=== PATIENT | female | born 1940 | race Caucasian/White ===

== ENCOUNTER 2022-11-15 07:02 | Inpatient (IN) | payer OTHER ==
[~2022-11-15] VITALS: Ht 154.9 cm; Wt 77.1 kg
[2022-11-15 07:16] VITALS: BP 134/71
--- NOTE | 2022-11-15 07:22 | NUR ---
PT W/C ASSISTED TO BED 9.
--- NOTE | 2022-11-15 07:25 | NUR ---
Patient resting in bed, A/Ox4, chest rise and fall symmetrical, no s/s of distress, patient on monitor.
--- NOTE | 2022-11-15 07:28 | NUR ---
Change of shift report given to AM shift nurse Mateus HUNTER. AM shift nurse Mateus RN verbalized understanding of report, no further questions.
--- NOTE | 2022-11-15 07:40 | NUR ---
PT TO X RAYS
[2022-11-15 09:15] LABS: BASOPHILS # (AUTO) 0.1 K/uL (0.00-0.22); BASOPHILS % (AUTO) 0.8 % (0.0-2.0); EOSINOPHILS # (AUTO) 0.5 K/uL (0-0.4); EOSINOPHILS % (AUTO) 4.7 % (0.0-4.0); HEMATOCRIT 37.4 % (36-48); HEMOGLOBIN 12.3 g/dL (12.0-16.0); LYMPHOCYTES # (AUTO) 1.1 K/uL (2.5-16.5); LYMPHOCYTES % (AUTO) 10.4 % (20.5-51.1); MEAN CORPUSCULAR HEMOGLOBIN 27 pg (27-31); MEAN CORPUSCULAR HGB CONC 33 g/dL (33-37); MEAN CORPUSCULAR VOLUME 80.1 fL (80-94); MONOCYTES # (AUTO) 0.8 K/uL (0.8-1.0); MONOCYTES % (AUTO) 7.1 % (1.7-9.3); NEUTROPHILS # (AUTO) 8.3 K/uL (1.8-7.7); PLATELET COUNT (AUTO) 310 K/uL (140-450); RED BLOOD CELL COUNT(AUTO) 4.66 MIL/uL (4.20-5.40); RED CELL DISTRIBUTION WIDTH 26.8 % (11.6-13.7); WHITE BLOOD COUNT (AUTO) 10.8 K/uL (4.8-10.8)
[2022-11-15 09:25] LABS: ALBUMIN 3.6 g/dL (3.4-5.0); ANION GAP 15.6 (8-16); ASPARTATE AMINOTRANSFERASE 27 U/L (15-37); CARBON DIOXIDE 25.4 mmol/L (21-32); CHLORIDE 97 mmol/L (98-107); CREATININE 1.3 mg/dL (0.6-1.3); GLUCOSE 119 mg/dL (74-106); SODIUM SERUM 135 mmol/L (136-145); TOTAL BILIRUBIN 0.6 mg/dL (0.0-1.0); UREA NITROGEN, BLOOD 19 mg/dL (7-18)
[2022-11-15] MEDS ORDERED: MORPHINE SULFATE 4 MG/ML SYR IM ONE (09:45)
[2022-11-15] MEDS ORDERED: CALCIUM CHLORIDE 10% 100 MG/ML SYR IVP ONE (09:45)
[2022-11-15] MEDS ORDERED: NACL 0.9% 1,000 ML IV ONE (09:45)
[2022-11-15] MEDS ORDERED: POTASSIUM CHLORIDE 10 MEQ TABER PO ONE (09:45)
--- NOTE | 2022-11-15 10:11 | NUR ---
HAD U/S DONE, X R DONE, MEDICATED FOR RIGHT ARM PAIN 04/09, SR ON CM O2 SAT 98% RA , SR UP TIMES 2
[2022-11-15] MEDS ORDERED: PANT40EC PO (10:22)
[2022-11-15] MEDS ORDERED: FURO40TA9 PO (10:22)
[2022-11-15] MEDS ORDERED: CARV12.5 PO (10:23)
[2022-11-15] MEDS ORDERED: NIFE30TE5 PO (10:24)
[2022-11-15] MEDS ORDERED: MELA10TA21 PO (10:25)
[2022-11-15] MEDS ORDERED: LORazepam 2 MG/ML VIAL IVP PRN (10:45)
[2022-11-15] MEDS ORDERED: MORPHINE SULFATE 2 MG/ML SYR IVP PRN (10:45)
[2022-11-15] MEDS ORDERED: POTASSIUM CHLORIDE 10 MEQ TABER PO PRN (10:45)
[2022-11-15] MEDS ORDERED: ACETAMINOPHEN 325 MG TAB PO PRN (10:45)
[2022-11-15] MEDS ORDERED: ONDANSETRON 4 MG/2 ML VIAL IVP PRN (10:45)
[2022-11-15] MEDS ORDERED: MAG SULF 2000 MG/WATER PREMIX 50 ML IV PRN (10:45)
[2022-11-15] MEDS ORDERED: DOCUSATE SODIUM 100 MG GELCAP PO PRN (10:45)
[2022-11-15 11:17] LABS: MAGNESIUM 1.8 mg/dL (1.8-2.4); PHOSPHORUS 1.7 mg/dL (2.5-4.9)
--- NOTE | 2022-11-15 12:44 | NUR ---
sitting in a chair, no ac distress, sr w pvcs on cm, sl patent LH, sr up times 2
--- NOTE | 2022-11-15 16:19 | NUR ---
MEDICATED FOR RIGHT HAND AND ARM PAIN 03/09, WRIST BRACE IN PLACE, N/C INTACT, SR ON CM SR UP TIMES 2
--- NOTE | 2022-11-15 19:00 | NUR ---
food tray given
--- NOTE | 2022-11-15 19:30 | NUR ---
Patient received on room 9 sitting on the chair comfortably and awake. Alert and oriented x4. No acute distress. No complaints of pain or discomfort. Respirations even and unlabored.
--- NOTE | 2022-11-15 21:20 | NUR ---
Patient will be admitted to care of Dr. Fountain. Admited to Telemetry. Will go to room 121 A. Belongings list completed. Report to DALE Dewey.
[2022-11-15] MEDS: carvediloL 12.5 MG TAB PO SCH (21:37)
[2022-11-15 21:43] VITALS: BP 159/89
[2022-11-16 04:33] VITALS: BP 121/53
[2022-11-16] MEDS: NIFEdipine 30 MG TABER PO SCH (05:33)
--- NOTE | 2022-11-16 05:46 | NUR ---
rn notes patient remains on room air, no sob noted, patient denies pain at this time. VSS all shift. BP under control with medications. Patient able to ambulate to restroom by herself with minimal help.
[2022-11-16 06:40] LABS: ANION GAP 13.4 (8-16); CARBON DIOXIDE 26.1 mmol/L (21-32); CHLORIDE 101 mmol/L (98-107); GLUCOSE 106 mg/dL (74-106); POTASSIUM 3.5 mmol/L (3.5-5.1); SODIUM SERUM 137 mmol/L (136-145); UREA NITROGEN, BLOOD 17 mg/dL (7-18)
[2022-11-16 06:55] LABS: BASOPHILS # (AUTO) 0.1 K/uL (0.00-0.22); BASOPHILS % (AUTO) 0.9 % (0.0-2.0); EOSINOPHILS # (AUTO) 0.3 K/uL (0-0.4); HEMATOCRIT 34.4 % (36-48); HEMOGLOBIN 11.4 g/dL (12.0-16.0); LYMPHOCYTES # (AUTO) 1.1 K/uL (2.5-16.5); LYMPHOCYTES % (AUTO) 13.3 % (20.5-51.1); MEAN CORPUSCULAR HEMOGLOBIN 26 pg (27-31); MEAN CORPUSCULAR HGB CONC 33 g/dL (33-37); MEAN CORPUSCULAR VOLUME 79.3 fL (80-94); MONOCYTES # (AUTO) 0.9 K/uL (0.8-1.0); MONOCYTES % (AUTO) 10.3 % (1.7-9.3); NEUTROPHILS % (AUTO) 72.5 % (42.2-75.2); PLATELET COUNT (AUTO) 283 K/uL (140-450); RED BLOOD CELL COUNT(AUTO) 4.34 MIL/uL (4.20-5.40); RED CELL DISTRIBUTION WIDTH 26.2 % (11.6-13.7); WHITE BLOOD COUNT (AUTO) 8.3 K/uL (4.8-10.8)
--- NOTE | 2022-11-16 07:10 | NUR ---
RECEIVED REPORT FROM NIGHTSHIFT NURSE. PT IS ASLEEP, WOKE UP TO NAME AND TOUCH, PT IS [place] SPEAKING, AOX4, ON ROOM AIR, AMBULATORY WITH ASSISTANCE. PT SHOWS NO SIGNS OF DISTRESS, WILL CONTINUE WITH CARE. BED IN LOWEST POSITION, 2 SIDE RAILS UP, CALL LIGHT PLACED WITHIN REACH.
[2022-11-16 08:00] VITALS: BP 144/63
[2022-11-16] MEDS: carvediloL 12.5 MG TAB PO SCH ×2 (09:15→20:27)
--- NOTE | 2022-11-16 09:59 | NUR ---
PATIENT HAS BEEN SCREENED AND CATEGORIZED MODERATE NUTRITION RISK. PATIENT WILL BE SEEN WITHIN 3-5 DAYS OF ADMISSION. 11/15/22-11/20/[address]
--- NOTE | 2022-11-16 10:45 | NUR ---
PT REPORTS HAVING HEADACHE 6/10 PAIN. NON-PHARM INTERVENTIONS INEFFECTIVE (RAISED HOB, REPOSITION, DISTRACTION, RELAXATION TECHNIQUES). PRN MEDICATION FOR SÁNCHEZ ADMINISTERED, PT TOLERATED GREEN END DEPARTMENT SUPERVISOR WELL. WILL CONTINUE TO MONITOR AND WILL CONTINUE WITH CARE. PT IS SITTING IN CHAIR AT BEDSIDE, STATES IT IS MORE COMFORTABLE FOR HER. DAUGHTER IS WITH HER AT BEDSIDE. JAMES CEVALLOS,
[2022-11-16] MEDS ORDERED: CALCIUM GLUC 1 GM/50 mL NS BAG 50 ML IV SCH (11:00)
--- NOTE | 2022-11-16 11:50 | NUR ---
PT CALCIUM LOW (Ca: 5.6). HAD TO CHANGE IV SITE DT INFILTRATION, NEW IV SITE IN LEFT WRIST. STARTED CALCIUM GLUCONATE 1GM/50ML IN NS @100ML/HR. WILL MONITOR AND CONTINUE WITH CARE.
[2022-11-16 12:00] VITALS: BP 106/55
[2022-11-16 16:00] VITALS: BP 106/60
[2022-11-16] MEDS ORDERED: CALCIUM GLUCONATE 10% 1,000 MG in NACL 0.9% 50 ML IV SCH (19:00)
--- NOTE | 2022-11-16 19:15 | NUR ---
ENDORSED PT TO DAY SHIFT RN FOR CONTINUITY OF CARE. PT RESPONDS TO NAME, STABLE, AND LAYING IN BED. BED IN LOWEST POSITION, 2 SIDE RAILS UP, CALL LIGHT PLACED WITHIN REACH. Addendum: 11/16/22 at 2030 by CARLIE ANDREW RN ENDORSED PT TO TRACK PRODUCTION ENGINEER RN FOR CONTINUITY OF CARE. PT RESPONDS TO NAME, STABLE, AND LAYING IN BED. BED IN LOWEST POSITION, 2 SIDE RAILS UP, CALL LIGHT PLACED WITHIN REACH.
--- NOTE | 2022-11-16 19:16 | NUR ---
RECEIVED REPORT FROM DALE SEXTON FOR CONTINUITY OF CARE. PT AWAKE IN BED. ON TECHNICAL DELIVERY MANAGER. RESPIRATIONS EVEN AND UNLABORED ON RA. DENIES PAIN. SKIN INTACT, WARM AND DRY TO TOUCH. CALCIUM GLUCONATE NOT GIVEN, UNAVAILABLE PER RN. POC DISCUSSED WITH PT AND DALE ALCALA. CALL LIGHT WITHIN REACH. SAFETY PRECAUTIONS IN PLACE.
[2022-11-16] MEDS ORDERED: CALCIUM GLUC 1 GM/50 mL NS BAG 50 ML IV ONE (19:45)
[2022-11-16 20:00] VITALS: BP 125/49
--- NOTE | 2022-11-16 20:27 | NUR ---
ADMINISTERED DUE MEDS. PT TOLERATED WELL.
--- NOTE | 2022-11-16 20:34 | NUR ---
DR KAY WAS INFORMED ABOUT NON-ADMINISTRATION OF CALCIUM GLUCONATE DUE TO UNAVAILABILITY. PER DR KAY, OK NOT TO GIVE TONIGHT. RE-SCHEDULED TO GIVE TOMORROW MORNING.
[2022-11-16] MEDS: ZOLPIDEM 10 MG TAB PO PRN (21:35)
[2022-11-17] VITALS: BP 133/64
[2022-11-17 04:00] VITALS: BP 124/72
--- NOTE | 2022-11-17 05:24 | NUR ---
PT SLEEPING. CHEST RISING AND FALLING WITH NO ACUTE DISTRESS NOTED. SAFETY PRECAUTIONS IN PLACE.
[2022-11-17] MEDS: NIFEdipine 30 MG TABER PO SCH (05:53)
--- NOTE | 2022-11-17 07:02 | NUR ---
GAVE BEDSIDE REPORT TO DALE SEXTON FOR CONTINUITY OF CARE. ENDORSED CALCIUM GLUCONATE FOR ADMINISTRATION THIS MORNING. PT STILL SLEEPING. NO DISTRESS NOTED. BREATHING EVEN AND UNLABORED. SIDE RAILS UP, BED IN LOWEST POSITION AND BED ALARM ON. CALL LIGHT WITHIN REACH. SAFETY MAINTAINED THROUGHOUT SHIFT. PT IS STABLE.
--- NOTE | 2022-11-17 07:05 | NUR ---
RECEIVED REPORT FROM NIGHTSHIFT NURSE. PT IS AWAKE, AOX4. VITAL SIGNS STABLE. IV SITE TO LEFT WRIST, FLUSHED, CLEAN, STILL INTACT, SALINE LOCK. NO FLUIDS RUNNING AT THIS TIME. PT WANTED TO SIT IN CHAIR, HELPED PT OUT OF BED. EDUCATED PT ON UTILIZING CALL LIGHT TO GET UP/BACK IN BED. PT REPORTS NO PAIN OR NEEDS AT THIS TIME, WILL CONTINUE TO MONITOR AND CONTINUE WITH CARE. BED PLACED IN LOWEST POSITION, CALL LIGHT PLACED WITHIN REACH.
[2022-11-17 07:07] LABS: BASOPHILS # (AUTO) 0.1 K/uL (0.00-0.22); BASOPHILS % (AUTO) 0.9 % (0.0-2.0); EOSINOPHILS # (AUTO) 0.2 K/uL (0-0.4); EOSINOPHILS % (AUTO) 3.1 % (0.0-4.0); HEMATOCRIT 32.5 % (36-48); HEMOGLOBIN 10.8 g/dL (12.0-16.0); LYMPHOCYTES # (AUTO) 1.1 K/uL (2.5-16.5); LYMPHOCYTES % (AUTO) 15.9 % (20.5-51.1); MEAN CORPUSCULAR HEMOGLOBIN 26 pg (27-31); MEAN CORPUSCULAR HGB CONC 33 g/dL (33-37); MEAN CORPUSCULAR VOLUME 79.4 fL (80-94); MONOCYTES # (AUTO) 0.8 K/uL (0.8-1.0); MONOCYTES % (AUTO) 10.7 % (1.7-9.3); NEUTROPHILS % (AUTO) 69.4 % (42.2-75.2); PLATELET COUNT (AUTO) 280 K/uL (140-450); RED CELL DISTRIBUTION WIDTH 26.1 % (11.6-13.7); WHITE BLOOD COUNT (AUTO) 7.2 K/uL (4.8-10.8)
[2022-11-17 07:40] LABS: CARBON DIOXIDE 25.4 mmol/L (21-32); CHLORIDE 103 mmol/L (98-107); CREATININE 0.8 mg/dL (0.6-1.3); GLUCOSE 95 mg/dL (74-106); POTASSIUM 3.4 mmol/L (3.5-5.1); SODIUM SERUM 137 mmol/L (136-145); UREA NITROGEN, BLOOD 13 mg/dL (7-18)
[2022-11-17 08:00] VITALS: BP 127/60
[2022-11-17] MEDS: carvediloL 12.5 MG TAB PO SCH ×2 (08:36→20:10)
[2022-11-17] MEDS ORDERED: CALCIUM GLUC 1 GM/50 mL NS BAG 50 ML IV SCH (09:00)
[2022-11-17] MEDS ORDERED: CALCIUM GLUCONATE 10% 1,000 MG in NACL 0.9% 50 ML IV SCH (09:00)
--- NOTE | 2022-11-17 11:10 | NUR ---
SCREEN FOR LOW XAVIER SCALE AT RISK, CONTINUE TO FOLLOW PRESSURE ULCER PREVENTION INTERVENTIONS. -TURN AND REPOSITION PATIENT Q 2H, ASSIST IF NEEDED -ASSESS AND MONITOR SKIN CONDITION DURING POSITION CHANGES -OFFLOAD BILATERAL HEELS BY PLACING PILLOWS UNDER CALVES AT ALL TIMES, UNLESS OTHERWISE CONTRAINDICATED -PRESSURE REDISTRIBUTION BY PLACING PILLOWS AND OFFLOADING SACRALCOCCYX -KEEP SKIN CLEAN AND DRY AT ALL TIMES.
[2022-11-17 12:00] VITALS: BP 122/67
--- NOTE | 2022-11-17 15:07 | NUR ---
DC PLANNING ASSESSMENT COMPLETE PLEASE REFER TO ASSESSMENT FOR ADDITIONAL DETAILS PT BEING SEEN BY NURSE HEBER COLLAT INFO GATHERED FROM PTS DAUGHTER, JAMES PT IS AN 82 YR OLD FEMALE ADMITTED TO [facility] FROM HOME WITH DX OF FAILURE TO THRIVE. PT HAS PAST MEDICAL HX OF HYPERTENSION. PT IS REPORTED TO UTILIZE FWW/ BC AND IS REPORTED TO COMPETE ADL'S INDEPENDENTLY. PT IS REPORTED TO RESIDE IN A SINGLE STORY HOME, WITH HER DAUGHTER AND FAMILY, AT THE ADDRESS LISTED ON FILE PT IS PENDING PT EVAL. DISCUSSED WITH PTS DAUGHTER. FAMILY IS AGREEABLE AND OPEN TO PHYSICIAN AND PHYSICAL THERAPIST RECOMMENDATIONS. PT IS PENDING PT EVAL. DISCUSSED WITH PTS DAUGHTER, FAMILY IS AGREEABLE AND OPEN TO PHYSICIAN AND PHYSICAL THERAPIST RECOMMENDATIONS. TENTATIVE DC PLAN PENDING PHYSICIAN AND PHYSICAL THERAPIST RECOMMENDATIONS Addendum: 11/17/22 at 1508 by Lashanda Shukla SS Amended: Links added.
[2022-11-17 16:00] VITALS: BP 126/64
--- NOTE | 2022-11-17 16:00 | NUR ---
PT IS SITTING IN CHAIR AT BEDSIDE. REPORTS NO PAIN OR DISCOMFORT. EKG STRIP SHOWS AFIB, MD NOTIFIED, BOILER/CHILLER TECHNICIAN CONSULT PLACED, BOILER/CHILLER TECHNICIAN MD NOTIFIED. BOILER/CHILLER TECHNICIAN STATES HE WILL SEE PT TMRW (11/18/22). NO FURTHER NEEDS ARE TO MET AT THIS TIME, WILL CONTINUE TO MONITOR AND WILL CONTINUE WITH CARE. [id number]
--- NOTE | 2022-11-17 19:20 | NUR ---
PT AWAKE, SITTING IN CHAIR AT BEDSIDE. NO SIGNS OF DISTRESS. IV TO LEFT WRIST, SALINE LOCK. REPORTS NO PAIN OR DISCOMFORT. NO FURTHER NEEDS ARE TO BE MET AT THIS TIME. BED PLACED IN LOWEST POSITION, 2 SIDE RAILS UP, CALL LIGHT PLACED WITHIN REACH. ENDORSED PT TO NIGHTSHIFT NURSE FOR CONTINUITY OF CARE. [id number]
--- NOTE | 2022-11-17 19:50 | NUR ---
RECEIVED REPORT FROM DAY SHIFT NURSE FOR CONTINUITY OF CARE. PT IS AWAKE, A&O X4, UPPER SORBIAN SPEAKING BUT DOES UNDERSTAND SOME [place]. PT IS CURRENTLY ON ROOM AIR WITH NO SIGNS OF ACUTE DISTRESS NOTED. PT IS CONTINENT AND IS ABLE TO AMBULATE WITH ASSISTANCE. NEEDS REINFORCEMENT IN USING HER CALL LIGHT. PT HAS AN IV SITE LOCATED AT LEFT HAND 22 GAUGE, INTACT AND PATENT. SAFETY MEASURES IN PLACE AND CALL LIGHT WITHIN REACH.
[2022-11-17 20:00] VITALS: BP 158/73
--- NOTE | 2022-11-17 20:00 | NUR ---
Patient's Plan of Care was discussed and reviewed with FOREIGN AGENT: DOLLY ZIMMERMAN
[2022-11-18] VITALS: BP 126/64
[2022-11-18] MEDS: ZOLPIDEM 10 MG TAB PO PRN (00:01)
--- NOTE | 2022-11-18 00:05 | NUR ---
PT REPORTED DIFFICULTY SLEEPING, REQUESTING MEDICATION TO HELP HER SLEEP. ADMINISTERED AMBIEN 10MG PRN. NO OTHER SIGNS OF DISTRESS NOTED. WILL CONTINUE FREQUENT ROUNDS.
[2022-11-18 04:43] VITALS: BP 117/64
[2022-11-18] MEDS: NIFEdipine 30 MG TABER PO SCH (06:21)
[2022-11-18 07:09] LABS: BASOPHILS # (AUTO) 0.1 K/uL (0.00-0.22); BASOPHILS % (AUTO) 0.8 % (0.0-2.0); EOSINOPHILS # (AUTO) 0.3 K/uL (0-0.4); EOSINOPHILS % (AUTO) 4.5 % (0.0-4.0); HEMATOCRIT 35.2 % (36-48); HEMOGLOBIN 11.7 g/dL (12.0-16.0); MEAN CORPUSCULAR HEMOGLOBIN 26 pg (27-31); MEAN CORPUSCULAR HGB CONC 33 g/dL (33-37); MEAN CORPUSCULAR VOLUME 79.4 fL (80-94); MONOCYTES # (AUTO) 0.6 K/uL (0.8-1.0); MONOCYTES % (AUTO) 8.5 % (1.7-9.3); NEUTROPHILS % (AUTO) 71.2 % (42.2-75.2); PLATELET COUNT (AUTO) 313 K/uL (140-450); RED BLOOD CELL COUNT(AUTO) 4.43 MIL/uL (4.20-5.40)
[2022-11-18 07:12] LABS: ANION GAP 12.1 (8-16); CARBON DIOXIDE 27.3 mmol/L (21-32); CHLORIDE 99 mmol/L (98-107); CREATININE 0.9 mg/dL (0.6-1.3); GLUCOSE 104 mg/dL (74-106); POTASSIUM 3.4 mmol/L (3.5-5.1); SODIUM SERUM 135 mmol/L (136-145); UREA NITROGEN, BLOOD 15 mg/dL (7-18)
--- NOTE | 2022-11-18 07:30 | NUR ---
RECEIVED REPORT FROM BRIQUETTER OPERATOR DOLLY FOR CONTINUITY OF CARE. INITIAL ASSESSMENT DONE. IV SL, IV SITE INTACT, PATENT. NO C/O PAIN OR DISCOMFORT. CALL LIGHT KEPT WITHIN REACH. WILL CONTINUE TO MONITOR.
--- NOTE | 2022-11-18 07:43 | NUR ---
ENDORSED TO DAY SHIFT NURSE, PT IS STABLE
[2022-11-18 08:00] VITALS: BP 119/70
[2022-11-18] MEDS ORDERED: CALCIUM GLUC 1 GM/50 mL NS BAG 50 ML IV SCH (08:00)
--- NOTE | 2022-11-18 08:51 | NUR ---
SCHEDULED IV ABT WAS GIVEN BY MADISON HUNTER. TOLERATING WELL.
[2022-11-18] MEDS: carvediloL 12.5 MG TAB PO SCH (08:59)
--- NOTE | 2022-11-18 08:59 | NUR ---
ADMINISTERED SCHEDULED PO MEDICATION. TOLERATING WELL.
[2022-11-18] MEDS ORDERED: OSC500 PO (09:17)
--- NOTE | 2022-11-18 10:01 | NUR ---
IV SITE WAS ACCIDENTALLY PULLED OUT. REINSERTED IV TO RT HAND 22G, WITH GOOD BLOOD RETURN. TOLERATING WELL.
--- NOTE | 2022-11-18 10:14 | NUR ---
PRN K DUR WAS GIVEN FOR POTASSIUM 3.4. TOLERATING WELL.
--- NOTE | 2022-11-18 11:48 | NUR ---
BASSAM MARTÍNEZ RECEIVED ORDER TO [facility] HOME [facility] FOR HOME SAFETY EVAL AND PHYSICAL THERAPY. RECEIVED A PAGE OF CONTRACTED HOME HEALTH AGENCIES FOR [facility]. AND FAXED TO THE FOLLOWING:[facility], [facility], [facility], [facility], AND [facility]. PT WAS ACCEPTED BY [facility] AT [facility] . AUTH #[id number] GIVEN FROM [facility] . NURSE GABY AND DAUGHTER JAMES MONTALVO.
--- NOTE | 2022-11-18 12:15 | NUR ---
PT LEFT. DISCHARGE TO HOME. HOME HEALTH TO FOLLOW. TRANSPORTED BY PRIVATE VEHICLE PER WHEELCHAIR. ACCOMPANIED BY HER DAUGHTER. ALERT AND ORIENTED X 4. RESP. EVEN AND UNLABORED. ID BAND AND IV REMOVED. DISCHARGE PAPERWORK DISCUSS AND SIGNED BY PT. PERSONAL BELONGINGS TAKEN. REMAINS STABLE.
== END 2022-11-18 12:15 | disposition home health service (06) | DRG 555 ==
LOC: MED 07:02 → MTU 10:43 → MED 10:43 → MTU 19:06
PROVIDERS: ADMIT Family Medicine; ATTEND Family Medicine
DX: M25.531 Pain in right wrist (principal); N17.0 Acute kidney failure with tubular necrosis; E87.1 Hypo-osmolality and hyponatremia; E83.51 Hypocalcemia; Z20.822 Contact with and (suspected) exposure to COVID-19; M25.511 Pain in right shoulder; E87.6 Hypokalemia; E87.8 Other disorders of electrolyte and fluid balance, not elsewhere classified; E83.39 Other disorders of phosphorus metabolism; E86.0 Dehydration; I12.9 Hypertensive chronic kidney disease with stage 1 through stage 4 chronic kidney disease, or unspecified chronic kidney disease; N18.31 Chronic kidney disease, stage 3a; Z79.899 Other long term (current) drug therapy; R62.7 Adult failure to thrive; Z68.32 Body mass index [BMI] 32.0-32.9, adult
CPT/HCPCS: 36415; 71045; 73030; 73080; 73110; 80048; 80053; 82306; 82330; 83735; 83970; 84100; 84484; 85025; 85651; 86140; 86430; 87081; 93005; 93971; 96374; 96375; 97116; 97163-GP; 99291; J0610; J2060; J2270; J2405; Q0092

== ENCOUNTER 2023-12-08 00:30 | Inpatient (IN) | payer OTHER ==
[2023-12-08] VITALS (11 sets, daily range): BP systolic 103–128; BP diastolic 43–64; PULSE 69–102; RESP 17–34; TEMP 97.5–98.4; O2SAT 50–98
[~2023-12-08] VITALS: Ht 146.1 cm; Wt 87.1 kg
[~2023-12-08 00:30] MED LIST: CARV12.5 PO; FURO40TA9 PO; MELA10TA21 PO; NIFE30TE5 PO; OSC500 PO; PANT40EC PO
[2023-12-08] MEDS: ALBUTEROL SULFATE/IPRATROPIU 3 ML SOL IH ONE (00:47)
[2023-12-08] MEDS ORDERED: EMPA10TA PO (01:01)
[2023-12-08 01:14] LABS: BASOPHILS # (AUTO) 0.1 K/uL (0.00-0.22); EOSINOPHILS # (AUTO) 0.1 K/uL (0-0.4); HEMOGLOBIN 12.4 g/dL (12.0-16.0); MONOCYTES # (AUTO) 1.1 K/uL (0.8-1.0); MONOCYTES % (AUTO) 10.1 % (1.7-9.3)
[2023-12-08 01:23] LABS: BASOPHILS % (AUTO) 0.9 % (0.0-2.0); EOSINOPHILS % (AUTO) 0.7 % (0.0-4.0); HEMATOCRIT 36.9 % (36-48); LYMPHOCYTES # (AUTO) 1.3 K/uL (2.5-16.5); LYMPHOCYTES % (AUTO) 11.4 % (20.5-51.1); MEAN CORPUSCULAR HEMOGLOBIN 28 pg (27-31); MEAN CORPUSCULAR HGB CONC 34 g/dL (33-37); MEAN CORPUSCULAR VOLUME 81.5 fL (80-94); NEUTROPHILS # (AUTO) 8.6 K/uL (1.8-7.7); NEUTROPHILS % (AUTO) 76.9 % (42.2-75.2); PLATELET COUNT (AUTO) 308 K/uL (140-450); RED BLOOD CELL COUNT(AUTO) 4.52 MIL/uL (4.20-5.40); RED CELL DISTRIBUTION WIDTH 17.7 % (11.6-13.7); WHITE BLOOD COUNT (AUTO) 11.2 K/uL (4.8-10.8)
[2023-12-08 01:36] LABS: ANION GAP 14.1 (8-16); CALCIUM 8.4 mg/dL (8.5-10.1); CHLORIDE 98 mmol/L (98-107); CREATININE 1.5 mg/dL (0.6-1.3); GLUCOSE 180 mg/dL (74-106); POTASSIUM 3.1 mmol/L (3.5-5.1); SODIUM SERUM 136 mmol/L (136-145); UREA NITROGEN, BLOOD 21 mg/dL (7-18)
[2023-12-08 01:37] LABS: FLU B ANTIGEN NEGATIVE (NEGATIVE)
[2023-12-08 01:38] LABS: FLU A ANTIGEN POSITIVE (NEGATIVE)
[2023-12-08] MEDS: AZITHROMYCIN 500 MG in DEXTROSE 5% 250 ML IV ONE (02:15)
[2023-12-08 02:37] LABS: LACTIC ACID 1.9 mmol/L (0.4-2.0)
[2023-12-08] MEDS ORDERED: cefTRIAXone 1,000 MG VIAL ONE (02:38)
[2023-12-08] MEDS ORDERED: AZITHROMYCIN 500 MG INJ VIAL IV ONE (02:38)
[2023-12-08] MEDS: OSELTAMIVIR PHOSPHATE 30 MG CAP PO ONE (02:44)
[2023-12-08] MEDS: FUROSEMIDE 40 MG/4 ML VIAL IVP ONE (02:44)
[2023-12-08] MEDS ORDERED: ACETAMINOPHEN 325 MG TAB PO PRN (02:55)
[2023-12-08] MEDS ORDERED: ONDANSETRON 4 MG/2 ML VIAL IVP PRN (02:55)
[2023-12-08] MEDS ORDERED: guaiFENesin 20 MG/ML UDC PO PRN (02:55)
[2023-12-08] MEDS: NACL 0.9% 1,000 ML IV SCH (05:24)
[2023-12-08] MEDS: ALBUTEROL SULFATE/IPRATROPIU 3 ML SOL IH SCH (07:00)
[2023-12-08] MEDS ORDERED: INSULIN LISPRO SLIDING SCALE 100 UNITS/ML VIAL SUBQ PRN (07:55)
[2023-12-08] MEDS ORDERED: ENOXAPARIN 40 MG/0.4 ML SYR SUBQ SCH (09:00)
[2023-12-08] MEDS ORDERED: ENOXAPARIN 30 MG/0.3 ML SYR SUBQ SCH (09:00)
[2023-12-08] MEDS ORDERED: CALCIUM CARBONATE 500 MG TAB PO SCH (09:00)
[2023-12-08] MEDS ORDERED: carvediloL 12.5 MG TAB PO SCH (09:00)
[2023-12-08] MEDS ORDERED: FUROSEMIDE 40 MG TAB PO SCH (09:00)
[2023-12-08] MEDS: PANTOPRAZOLE 40 MG INJ VIAL IVP SCH (09:19)
[2023-12-08] MEDS: POTASSIUM CHLORIDE 10 MEQ TABER PO SCH (09:31)
[2023-12-08] MEDS: FUROSEMIDE 20 MG/2 ML VIAL IVP SCH (11:37)
[2023-12-08] MEDS ORDERED: ALBUTEROL SULFATE/IPRATROPIU 3 ML SOL IH SCH (13:00)
[2023-12-08 14:09] LABS: BLOOD GAS PH 7.464 (7.35-7.45)
[2023-12-08 14:10] LABS: BLOOD GAS BASE EXCESS 2.3 mmol/L (-2.0-2.0); BLOOD GAS O2 SAT% 97.6 % (92.0-98.5); BLOOD GAS PO2 93.5 mmHg (75-100)
[2023-12-08 19:40] LABS: APPEARANCE,URINE CLEAR (CLEAR); BILIRUBIN,URINE NEGATIVE (NEGATIVE); BLOOD, URINE 1+ (NEGATIVE); COLOR,URINE YELLOW (YELLOW); LEUKOCYTE ESTERASE ,URINE NEGATIVE (NEGATIVE); NITRITE, URINE NEGATIVE (NEGATIVE); PROTEIN,URINE NEGATIVE (NEGATIVE); UGLUCOSE 3+ (NEGATIVE); UROBILINOGEN,URINE 0.2 EU/dL (0.2 - 1)
[2023-12-08 20:02] LABS: BACTERIA,URINE FEW /HPF (None Seen); SQUAMOUS EPITHELIAL CELL,UR 0-3 (FEW) /LPF (0-3 (FEW)); WBC,URINE 0-5 /HPF (0-5)
[2023-12-08] MEDS ORDERED: OSELTAMIVIR PHOSPHATE 75 MG CAP PO SCH (21:00)
[2023-12-09] VITALS (11 sets, daily range): BP systolic 94–127; BP diastolic 52–90; PULSE 60–85; RESP 18–26; TEMP 97.3–98.7; O2SAT 50–100
[2023-12-09 03:03] LABS: BLOOD GAS HCO3 25.6 mmol/L (22-26); BLOOD GAS PCO2 41.1 mmHg (35-45); BLOOD GAS PO2 69.2 mmHg (75-100)
[2023-12-09 03:04] LABS: BLOOD GAS O2 SAT% 93.5 % (92.0-98.5)
[2023-12-09 06:01] LABS: BASOPHILS # (AUTO) 0.1 K/uL (0.00-0.22); EOSINOPHILS # (AUTO) 0.2 K/uL (0-0.4); EOSINOPHILS % (AUTO) 2.9 % (0.0-4.0); HEMOGLOBIN 11.5 g/dL (12.0-16.0); LYMPHOCYTES # (AUTO) 0.8 K/uL (2.5-16.5); LYMPHOCYTES % (AUTO) 13.7 % (20.5-51.1); MEAN CORPUSCULAR HEMOGLOBIN 28 pg (27-31); MEAN CORPUSCULAR HGB CONC 34 g/dL (33-37); MEAN CORPUSCULAR VOLUME 81.5 fL (80-94); MONOCYTES # (AUTO) 0.7 K/uL (0.8-1.0); MONOCYTES % (AUTO) 11.9 % (1.7-9.3); NEUTROPHILS # (AUTO) 4.2 K/uL (1.8-7.7); NEUTROPHILS % (AUTO) 70.5 % (42.2-75.2); PLATELET COUNT (AUTO) 281 K/uL (140-450); RED BLOOD CELL COUNT(AUTO) 4.17 MIL/uL (4.20-5.40); RED CELL DISTRIBUTION WIDTH 17.2 % (11.6-13.7)
[2023-12-09 06:28] LABS: ANION GAP 11.5 (8-16); CALCIUM 8.2 mg/dL (8.5-10.1); CARBON DIOXIDE 29.8 mmol/L (21-32); CHLORIDE 105 mmol/L (98-107); CREATININE 0.9 mg/dL (0.6-1.3); GLUCOSE 92 mg/dL (74-106); POTASSIUM 3.3 mmol/L (3.5-5.1); SODIUM SERUM 143 mmol/L (136-145); UREA NITROGEN, BLOOD 15 mg/dL (7-18)
[2023-12-09] MEDS ORDERED: CLINICAL MONITORING MC PRN (07:40)
[2023-12-09] MEDS: OSELTAMIVIR PHOSPHATE 30 MG CAP PO SCH (09:57)
[2023-12-09] MEDS: AZITHROMYCIN 500 MG in DEXTROSE 5% 250 ML IV SCH (12:23)
[2023-12-10] VITALS (14 sets, daily range): BP systolic 108–131; BP diastolic 57–78; PULSE 58–104; RESP 16–20; TEMP 97.7–98.6; O2SAT 50–98
[2023-12-10] MEDS: BLOOD GLUCOSE MONITORING 1 DEV DEV FS SCH (06:41)
[2023-12-10] MEDS: METOPROLOL 25 MG TAB PO SCH (21:09)
[2023-12-10] MEDS: CRUSHER, PILL MC ONE (21:14)
[2023-12-11] VITALS (8 sets, daily range): BP systolic 127–171; BP diastolic 55–77; PULSE 59–88; RESP 17–19; TEMP 97.4–97.9; O2SAT 95–99
[2023-12-11 08:30] LABS: BASOPHILS # (AUTO) 0.1 K/uL (0.00-0.22); BASOPHILS % (AUTO) 1.3 % (0.0-2.0); EOSINOPHILS # (AUTO) 0.3 K/uL (0-0.4); HEMATOCRIT 38.8 % (36-48); HEMOGLOBIN 12.8 g/dL (12.0-16.0); LYMPHOCYTES # (AUTO) 1.5 K/uL (2.5-16.5); LYMPHOCYTES % (AUTO) 20.9 % (20.5-51.1); MEAN CORPUSCULAR HEMOGLOBIN 27 pg (27-31); MEAN CORPUSCULAR HGB CONC 33 g/dL (33-37); MEAN CORPUSCULAR VOLUME 82.1 fL (80-94); MONOCYTES # (AUTO) 0.6 K/uL (0.8-1.0); MONOCYTES % (AUTO) 8.9 % (1.7-9.3); NEUTROPHILS # (AUTO) 4.6 K/uL (1.8-7.7); NEUTROPHILS % (AUTO) 64.9 % (42.2-75.2); PLATELET COUNT (AUTO) 399 K/uL (140-450); RED BLOOD CELL COUNT(AUTO) 4.73 MIL/uL (4.20-5.40); RED CELL DISTRIBUTION WIDTH 17.8 % (11.6-13.7); WHITE BLOOD COUNT (AUTO) 7.2 K/uL (4.8-10.8)
[2023-12-11 08:37] LABS: ANION GAP 11.4 (8-16); CALCIUM 9.3 mg/dL (8.5-10.1); CARBON DIOXIDE 29.3 mmol/L (21-32); CHLORIDE 105 mmol/L (98-107); CREATININE 0.8 mg/dL (0.6-1.3); GLUCOSE 95 mg/dL (74-106); POTASSIUM 4.7 mmol/L (3.5-5.1); SODIUM SERUM 141 mmol/L (136-145); UREA NITROGEN, BLOOD 14 mg/dL (7-18)
[2023-12-11] MEDS: hydrALAZINE 20 MG/ML VIAL IVP PRN (13:24)
[2023-12-11] MEDS ORDERED: ROB PO (14:16)
[2023-12-11] MEDS ORDERED: TAM75 PO (14:16)
[2023-12-11] MEDS ORDERED: AZIT250T3 PO (14:16)
[2023-12-11] MEDS ORDERED: METOPROLOL 25 MG TAB PO SCH (21:00)
== END 2023-12-11 16:45 | disposition home or self-care (01) | DRG 871 ==
LOC: MED 00:30 → MTU 02:57 → MMU 06:36
PROVIDERS: ADMIT Internal Medicine; ATTEND Internal Medicine
PROC: 5A0935A Assistance with Respiratory Ventilation, Less than 24 Consecutive Hours, High Flow/Velocity Cannula (ICD-10-PCS; principal; 2023-12-08)
PROC: 5A0935A Assistance with Respiratory Ventilation, Less than 24 Consecutive Hours, High Flow/Velocity Cannula (ICD-10-PCS; 2023-12-09)
DX: A41.9 Sepsis, unspecified organism (principal); J10.08 Influenza due to other identified influenza virus with other specified pneumonia; J96.01 Acute respiratory failure with hypoxia; N17.0 Acute kidney failure with tubular necrosis; I50.32 Chronic diastolic (congestive) heart failure; Z20.822 Contact with and (suspected) exposure to COVID-19; K21.9 Gastro-esophageal reflux disease without esophagitis; I11.0 Hypertensive heart disease with heart failure; E87.6 Hypokalemia; E11.9 Type 2 diabetes mellitus without complications; Z79.899 Other long term (current) drug therapy; Z86.73 Personal history of transient ischemic attack (TIA), and cerebral infarction without residual deficits
CPT/HCPCS: 36415; 36600; 71045; 71250; 76770; 78582; 80048; 81001; 82803; 82948; 83036; 83605; 83880; 84484; 85025; 85379; 87040; 87081; 93005; 94640; 96374; 96375; 97116; 97163-GP; 99291; C9113; J0360; J0456; J0696; J1644; J1815; J1940; J7060; Q0092